=== PATIENT | female | born 1970 | race American Indian/Alaskan Native ===

== ENCOUNTER 2017-02-13 18:48 | Emergency (ER) | payer BC ==
[2017-02-13 21:10] LABS: Eosinophils % (Auto) 1.2 % (0.0-4.3); Hematocrit 35.1 % (30.3-42.9); Hemoglobin 11.2 gm/dl (10.1-14.3); Mean Corpuscular HGB Conc 32 % (30-34); Mean Corpuscular Volume 79 fl (79-97); Platelet Count 211 K/mm3 (140-440); Red Blood Count 4.42 M/mm3 (3.65-5.03); Red Cell Distribution Width 15.5 % (13.2-15.2)
[2017-02-13 21:13] LABS: Mean Corpuscular Hemoglobin 25 pg (28-32)
[2017-02-13 21:23] LABS: Albumin 4.1 g/dL (3.9-5); Alkaline Phosphatase 44 units/L (35-129); Anion Gap 17 mmol/L; Blood Urea Nitrogen 12 mg/dL (7-17); Carbon Dioxide 26 mmol/L (22-30); Chloride 100.1 mmol/L (98-107); Glucose 99 mg/dL (65-100); Lipase 24 units/L (13-60); Potassium 3.9 mmol/L (3.6-5.0); Sodium 139 mmol/L (137-145); Total Protein 8.1 g/dL (6.3-8.2)
[2017-02-13 21:26] LABS: Alanine Aminotransferase < 5 units/L (7-56)
[2017-02-13 21:54] LABS: Bilirubin,Urine NEG (Negative); Blood,Urine NEG (Negative); Ketones,Urine NEG (Negative); Leukocyte Esterase,Urine NEG (Negative); Mucus,Urine FEW /HPF; Nitrite,Urine NEG (Negative); Protein,Urine <15 mg/dL mg/dL (Negative); Urobilinogen,Urine < 2.0 mg/dL (<2.0)
[2017-02-13 22:09] VITALS: BP 117/76
[2017-02-13] MEDS ORDERED: MORPHINE IV ONE (22:50)
[2017-02-13] MEDS ORDERED: PEPCID IV ONE (22:51)
[2017-02-13] MEDS ORDERED: ZOFRAN IV ONE (22:51)
[2017-02-14] MEDS ORDERED: SUBLIMAZE IV ONE (00:09)
--- NOTE | 2017-02-14 01:08 | Emergency Department Report ---
ED Abdominal Pain HPI - General Chief Complaint: Abdominal Pain Stated Complaint: ABD PAIN/DIARRHEA X 1 WK Time Seen by Provider: 02/13/17 22:50 Source: patient Mode of arrival: Ambulatory Limitations: No Limitations - History of Present Illness Initial Comments: A 39-year-old female who presents with abdominal pain. Symptoms have been going on for the last week. She states that her abdominal pain is located in the right upper quadrant. The pain to 5 out 10 it doesn't radiate it is an achy type of pain nothing makes it better or worse. Patient also states that she's been having some nausea and vomiting for last 4 days. She's also had some watery diarrhea has not been any blood in the diarrhea or any black stool. Patient denies having any fevers she states that it's hard to hold food down. Severity scale (0 -10): 5 - Related Data Home Medications Medication Instructions Recorded Confirmed Last Taken metFORMIN [Glucophage] 500 mg PO DAILY 01/14/14 01/14/14 Unknown Previous Rx's Medication Instructions Recorded Last Taken Type Nitrofurantoin [place]/M-Cryst 100 mg PO Q12HR #14 capsule 06/03/14 Unknown Rx [Macrobid] Phenazopyridine [Pyridium] 200 mg PO TID #6 tablet 06/03/14 Unknown Rx Allergies Allergy/AdvReac Type Severity Reaction Status Date / Time Penicillins Allergy Angioedema Verified 01/14/14 22:34 ED Review of Systems ROS: Stated complaint: ABD PAIN/DIARRHEA X 1 WK Other details as noted in HPI Constitutional: denies: chills, fever Eyes: denies: eye pain, eye discharge, vision change ENT: denies: ear pain, throat pain Respiratory: denies: cough, shortness of breath, wheezing Cardiovascular: denies: chest pain, palpitations Endocrine: no symptoms reported Gastrointestinal: abdominal pain, nausea, vomiting, diarrhea Genitourinary: denies: urgency, dysuria, discharge Musculoskeletal: denies: back pain, joint swelling, arthralgia Skin: denies: rash, lesions Neurological: denies: headache, weakness, paresthesias Psychiatric: denies: anxiety, depression Hematological/Lymphatic: denies: easy bleeding, easy bruising ED Past Medical Hx - Past Medical History Previous Medical History?: Yes Hx Diabetes: Yes - Surgical History Past Surgical History?: Yes Additional Surgical History: [place] cyst removed 01/14/14. breast reduction - Social History Smoking Status: Never Smoker Substance Use Type: None - Medications Home Medications: Home Medications Medication Instructions Recorded Confirmed Last Taken Type metFORMIN [Glucophage] 500 mg PO DAILY 01/14/14 01/14/14 Unknown History Nitrofurantoin [place]/M-Cryst 100 mg PO Q12HR #14 capsule 06/03/14 Unknown Rx [Macrobid] Phenazopyridine [Pyridium] 200 mg PO TID #6 tablet 06/03/14 Unknown Rx ED Physical Exam - General Limitations: No Limitations General appearance: alert, in no apparent distress - Head Head exam: Present: atraumatic, normocephalic - Eye Eye exam: Present: normal appearance - ENT ENT exam: Present: mucous membranes moist - Neck Neck exam: Present: normal inspection - Respiratory Respiratory exam: Present: normal lung sounds bilaterally. Absent: respiratory distress - Cardiovascular Cardiovascular Exam: Present: regular rate, normal rhythm. Absent: systolic murmur, diastolic murmur, rubs, gallop - GI/Abdominal GI/Abdominal exam: Present: soft - Extremities Exam Extremities exam: Present: normal inspection, full ROM - Back Exam Back exam: Present: normal inspection - Neurological Exam Neurological exam: Present: alert, oriented X3 - Skin Skin exam: Present: warm, dry ED Course Vital Signs 02/13/17 02/13/17 20:18 22:08 Temperature 98.6 F Pulse Rate 83 68 Respiratory 18 16 Rate Blood Pressure 110/72 Blood Pressure 117/76 [Left] O2 Sat by Pulse 100 98 Oximetry - Reevaluation(s) Reevaluation #1: 02/14/17 01:04 Patient states that she is feeling better I we'll send patient home. ED Medical Decision Making - Lab Data Result diagrams: 02/13/17 20:52 02/13/17 20:52 Lab Results 02/13/17 02/13/17 02/13/17 Range/Units 20:44 20:52 20:52 WBC 6.0 (4.5-11.0) K/mm3 RBC 4.42 (3.65-5.03) M/mm3 Hgb 11.2 (10.1-14.3) gm/dl Hct 35.1 (30.3-42.9) % MCV 79 (79-97) fl MCH 25 L (28-32) pg MCHC 32 (30-34) % RDW 15.5 H (13.2-15.2) % Plt Count 211 (140-440) K/mm3 Lymph % (Auto) 36.7 H (13.4-35.0) % [place] % (Auto) 11.1 H (0.0-7.3) % Eos % (Auto) 1.2 (0.0-4.3) % Baso % (Auto) 1.0 (0.0-1.8) % Lymph # 2.2 (1.2-5.4) K/mm3 [place] # 0.7 (0.0-0.8) K/mm3 Eos # 0.1 (0.0-0.4) K/mm3 Baso # 0.1 (0.0-0.1) K/mm3 Seg Neutrophils % 50.0 (40.0-70.0) % Seg Neutrophils # 3.0 (1.8-7.7) K/mm3 Sodium (137-145) mmol/L Potassium (3.6-5.0) mmol/L Chloride (98-107) mmol/L Carbon Dioxide (22-30) mmol/L Anion Gap mmol/L BUN (7-17) mg/dL Creatinine (0.7-1.2) mg/dL Estimated GFR ml/min BUN/Creatinine Ratio % Glucose (65-100) mg/dL Calcium (8.4-10.2) mg/dL Total Bilirubin (0.1-1.2) mg/dL AST (5-40) units/L ALT (7-56) units/L Alkaline Phosphatase (35-129) units/L Total Protein (6.3-8.2) g/dL Albumin (3.9-5) g/dL Albumin/Globulin Ratio % Lipase (13-60) units/L HCG, Qual Negative (Negative) Urine Color Yellow (Yellow) Urine Turbidity Clear (Clear) Urine pH 5.0 (5.0-7.0) Ur Specific [place] 1.015 (1.003-1.030) Urine Protein <15 mg/dl (Negative) mg/dL Urine Glucose (UA) Neg (Negative) mg/dL Urine Ketones Neg (Negative) mg/dL Urine Blood Neg (Negative) Urine Nitrite Neg (Negative) Urine Bilirubin Neg (Negative) Urine Urobilinogen < 2.0 (<2.0) mg/dL Ur Leukocyte Esterase Neg (Negative) Urine WBC (Auto) 1.0 (0.0-6.0) /HPF Urine RBC (Auto) 1.0 (0.0-6.0) /HPF U Epithel Cells (Auto) 2.0 (0-13.0) /HPF Urine Mucus Few /HPF 02/13/17 Range/Units 20:52 WBC (4.5-11.0) K/mm3 RBC (3.65-5.03) M/mm3 Hgb (10.1-14.3) gm/dl Hct (30.3-42.9) % MCV (79-97) fl MCH (28-32) pg MCHC (30-34) % RDW (13.2-15.2) % Plt Count (140-440) K/mm3 Lymph % (Auto) (13.4-35.0) % [place] % (Auto) (0.0-7.3) % Eos % (Auto) (0.0-4.3) % Baso % (Auto) (0.0-1.8) % Lymph # (1.2-5.4) K/mm3 [place] # (0.0-0.8) K/mm3 Eos # (0.0-0.4) K/mm3 Baso # (0.0-0.1) K/mm3 Seg Neutrophils % (40.0-70.0) % Seg Neutrophils # (1.8-7.7) K/mm3 Sodium 139 (137-145) mmol/L Potassium 3.9 (3.6-5.0) mmol/L Chloride 100.1 (98-107) mmol/L Carbon Dioxide 26 (22-30) mmol/L Anion Gap 17 mmol/L BUN 12 (7-17) mg/dL Creatinine 0.8 (0.7-1.2) mg/dL Estimated GFR > 60 ml/min BUN/Creatinine Ratio 15.00 % Glucose 99 (65-100) mg/dL Calcium 9.0 (8.4-10.2) mg/dL Total Bilirubin 0.50 (0.1-1.2) mg/dL AST 17 (5-40) units/L ALT < 5 L (7-56) units/L Alkaline Phosphatase 44 (35-129) units/L Total Protein 8.1 (6.3-8.2) g/dL Albumin 4.1 (3.9-5) g/dL Albumin/Globulin Ratio 1.0 % Lipase 24 (13-60) units/L HCG, Qual (Negative) Urine Color (Yellow) Urine Turbidity (Clear) Urine pH (5.0-7.0) Ur Specific [place] (1.003-1.030) Urine Protein (Negative) mg/dL Urine Glucose (UA) (Negative) mg/dL Urine Ketones (Negative) mg/dL Urine Blood (Negative) Urine Nitrite (Negative) Urine Bilirubin (Negative) Urine Urobilinogen (<2.0) mg/dL Ur Leukocyte Esterase (Negative) Urine WBC (Auto) (0.0-6.0) /HPF Urine RBC (Auto) (0.0-6.0) /HPF U Epithel Cells (Auto) (0-13.0) /HPF Urine Mucus /HPF - Medical Decision Making Chief medical diagnosis: Gastroenteritis Differential medical diagnosis: GERD, food illness, peptic ulcer, Pancreatitis I will get CBC, CMP, lipase, IV fluids, IV narcotics. Patient states that she is feeling a lot better I will send patient home. Patient's symptoms going on for a week and given her clinical course it seems like it's mostly a gastroenteritis. Discussed with patient that she needs to drink clear fluids and to follow-up with her PCP. I gave patient return precautions and additional verbal discharge instructions were given. Critical care attestation.: If time is entered above; I have spent that time in minutes in the direct care of this critically ill patient, excluding procedure time. ED Disposition Clinical Impression: Nausea Abdominal pain Qualifiers: Abdominal location: right upper quadrant Qualified Code(s): R10.11 - Right upper quadrant pain Diarrhea Qualifiers: Diarrhea type: unspecified type Qualified Code(s): R19.7 - Diarrhea, unspecified Disposition: DC-01 TO HOME OR SELFCARE Is pt being admited?: No Does the pt Need Aspirin: No Condition: Stable Instructions: Abdominal Pain (ED) Referrals: CLEMENCIA YODER MD [Other] - 3-5 Days Time of Disposition: 01:07
== END 2017-02-14 02:30 | disposition home or self-care (01) ==
LOC: ED 18:48
DX: R10.11 Right upper quadrant pain (principal); R19.7 Diarrhea, unspecified; R11.0 Nausea; E11.9 Type 2 diabetes mellitus without complications; Z88.0 Allergy status to penicillin
CPT/HCPCS: 36415; 80053; 81001; 83690; 84703; 85025; 99283; J2270; J2405

== ENCOUNTER 2017-05-08 11:01 | Inpatient (IN) | payer BC ==
--- NOTE | 2017-05-03 10:34 | Anesthesia Consultation ---
Anesthesia Consult and Med Hx Date of service: 05/03/17 - Airway Anesthetic Teeth Evaluation: Good ROM Head & Neck: Adequate Mental/Hyoid Distance: Adequate Mallampati Class: Class II Intubation Access Assessment: Good - Pulmonary Exam CTA: Yes - Cardiac Exam Cardiac Exam: RRR - Pre-Operative Health Status ASA Pre-Surgery Classification: ASA2 Proposed Anesthetic Plan: General - Central Nervous System Hx Psychiatric Problems: No - Gastrointestinal Hx Gastroesophageal Reflux Disease: Yes (OTC Tums) - Endocrine Hx Non-Insulin Dependent Diabetes: No (pre diabetic on metformin) - Other Systems Hx Cancer: No
[2017-05-03 10:35] LABS: Basophils % (Auto) 0.6 % (0.0-1.8); Eosinophils % (Auto) 1.6 % (0.0-4.3); Hematocrit 33.9 % (30.3-42.9); Hemoglobin 11.1 gm/dl (10.1-14.3); Mean Corpuscular HGB Conc 33 % (30-34); Mean Corpuscular Hemoglobin 26 pg (28-32); Mean Corpuscular Volume 80 fl (79-97); Platelet Count 185 K/mm3 (140-440); Red Blood Count 4.26 M/mm3 (3.65-5.03); Red Cell Distribution Width 15.7 % (13.2-15.2); White Blood Count 4.2 K/mm3 (4.5-11.0)
[2017-05-03 10:56] LABS: Anion Gap 15 mmol/L; BUN/Creatinine Ratio 11; Blood Urea Nitrogen 10 mg/dL (7-17); Calcium 8.9 mg/dL (8.4-10.2); Carbon Dioxide 26 mmol/L (22-30); Chloride 106.1 mmol/L (98-107); Glucose 90 mg/dL (65-100); Potassium 3.7 mmol/L (3.6-5.0); Sodium 143 mmol/L (137-145)
--- NOTE | 2017-05-07 23:11 | History and Physical Report ---
History of Present Illness Date of examination: 05/01/17 History of present illness: Patient has been reassessed/reevaluated. H&P has been reviewed. No interval changes. This is a 47 years old female who presents with pelvic pain. " I hurt so bad today". She complains of dysmenorrhea, dyspareunia and vaginal discharge, but denies dysuria, vaginal itching, vaginal odor, painful bowel movements, constipation, diarrhea, nausea, vomiting, back pain and fever. Pain is located LLQ, LUQ, RUQ and suprapubic. She describes the pain as achy, cramping and pressure. Duration of pain is 5 min - 1 hour and >1 hour. Episodes are intermittent and cyclic. Patient notes pain is worse with intercourse. Patient notes pain is better with narcotics. The patient also presents with uterine fibroids. She complains of pelvic pain, pelvic pressure and menorrhagia. Associated symptoms include dyspareunia. Prior to today's visit the patient has had US of pelvis and sonohysterogram. Vital Signs: Patient Profile: 47 Years Old Female LMP: 04/17/2017 Height: 64 inches (162.56 cm) Weight: 155 pounds (70.45 kg) BMI: 26.60 BSA: 1.76 Menstrual History: LMP (date): 04/17/2017 Current Method of Contraception: None Past History : 1 Term Births: 0 Premature Births: 0 Living Children: 0 Para: 0 Mult. Births: 0 Prev : 0 Aborta: 1 GARAGE HAND History Operations: Breast Reduction: Uterine Anomaly: positive fibroids Infection History HIV Risk Eval: no Personal hx. of genital herpes: no Current Allergies (reviewed today): * PCN (Critical) Past Medical History: Reviewed history from 08/04/2010 and no changes required: G E R D Past Surgical History: Reviewed history from 07/19/2011 and no changes required: Breast Reduction: Risk Factors: Smoked Tobacco Use: Never smoker Smokeless Tobacco Use: Never Passive smoke exposure: no Drug use: no HIV high-risk behavior: no Alcohol use: no Exercise: no Seatbelt use: 100 % Review of Systems General Complains of fatigue. Denies fever, chills, sweats, anorexia, weakness, malaise, weight loss and sleep disorder. Complains of vaginal discharge, menorrhagia, pelvic pain, painful periods and painful sex. Denies incontinence, dysuria, hematuria, urinary frequency, amenorrhea, abnormal vaginal bleeding, genital sores, decreased libido, urinary urgency, hot flashes, vaginal dryness, vaginal itching and vaginal odor. CV Denies chest pains, palpitations, syncope, dyspnea on exertion, orthopnea, PND and peripheral edema. Resp Denies cough, dyspnea at rest, excessive sputum, hemoptysis, wheezing and pleurisy. GI Denies nausea, vomiting, diarrhea, constipation, change in bowel habits, abdominal pain, melena, hematochezia, jaundice, gas/bloating, indigestion/ heartburn, dysphagia and odynophagia. Breast Denies left breast lump, right breast lump, nipple discharge, bloody discharge from nipple, breast pain, abnormal mammogram and breast enlargement. Psych Denies depression, anxiety, irritability and mood swings. Past History Past Medical History: other (See HPI) Past Surgical History: Other (See HPI) Social history: other (See HPI) Family history: other (See HPI) Medications and Allergies Allergies Allergy/AdvReac Type Severity Reaction Status Date / Time Penicillins Allergy Anaphylaxis Verified 05/02/17 12:48 Home Medications Medication Instructions Recorded Confirmed Last Taken Type metFORMIN [Glucophage] 500 mg PO DAILY 01/14/14 05/02/17 Unknown History Calcium Carbonate [Tums] 200 mg PO PRN PRN 05/02/17 05/02/17 Unknown History Active Meds: Active Medications Lactated Ringer's (Lactated Ringers) 1,000 mls @ 100 mls/hr IV DIRECT TOÑITO Review of Systems Constitutional: other (See HPI) Exam - Physical Exam Narrative exam: HEENT: normocephalic, no lesions or deformities Skin no ulcers, xanthomas Chest: respiratory effort normal, clear to auscultation Breasts: Breast reduction surgical scars no masses CV: regular, normal S1-S2, no murmur, no rub, no gallop Abdomen: soft,-tender, suprapubic no masses, bowel sounds normal Musculoskeletal: grossly normal ROM in joints, no joint tenderness or muscle weakness Neuro: no gross anomalities Extremities: normal alignment, no joint enlargement, crepitus, masses or tenderness; normal tone and strength GARAGE HAND Exams Vulva/Vagina: normal appearance, yellow discharge, lesions. No evidence of cystocele or rectocele. Cervix: normal appearance, no lesions, no discharge Uterus: normal position, midline, mobile tender Adnexae: unable to palpate due to patient's guarding Rectovaginal: Deferred - Constitutional Vitals: Temp Pulse Resp BP Pulse Ox 98.5 F 76 16 104/68 05/03/17 10:15 05/03/17 10:15 05/03/17 10:15 05/03/17 10:15 Results - Labs CBC & Chem 7: 05/03/17 10:00 05/03/17 10:00 Assessment and Plan - Patient Problems (1) Intramural leiomyoma of uterus Current Visit: Yes Status: Acute Plan to address problem: Diagnosis explained to patient . Questions answered. .Possible etiology of #2 Discussed with patient various medical, surgical and radiological therapies common for treatment including myomectomy hysterectomy and uterine artery embolization Patient desires definitive treatment Patient desires hysterectomy Discussed risks and benefits of laparotomy, laparoscopy, vaginal and robotic assisted approaches for hysterectomies Patient desires robotic assisted total hysterectomy. Consent reviewed and signed . The risks and alternatives for this surgery were reviewed with the patient. Discuss the risks of the surgery including infection, bleeding possibly heavy enough to require a blood transfusion, possible damage to bowel, bladder or ureter. Patient understand that this surgery with make her sterile.Patient understands if her ovaries are removed she will become menopausal. Also if unable to complete robitcally a laparotomy maybe required. Her questions were answered. Patient understands and desires to proceed. .Patient desires bilateral oophorectomy (2) Menorrhagia Current Visit: Yes Status: Acute Qualifiers: Menorrahagia type: with regular cycle Qualified Code(s): N92.0 - Excessive and frequent menstruation with regular cycle Plan to address problem: Probably secondary to # 1 (3) Dysmenorrhea Current Visit: Yes Status: Acute Plan to address problem: Probably secondary to # 1
[~2017-05-08 11:01] MED LIST: CLEOCIN 600 MG/50 mL 600 MG/50 ML BAG IV SCH; GARAMYCIN/NS 120MG/100ML 120 MG/100 ML BAG IV SCH; LACTATED RINGERS 1,000 ML IV SCH; NEURONTIN PO NR; PEPCID PO NR; VERSED IV NR
[2017-05-08] MEDS ORDERED: SUBLIMAZE IV ONE (11:30)
[2017-05-08] MEDS ORDERED: NACL 0.9% 1000 ML 1,000 ML ONE ×2 (11:38→15:27)
[2017-05-08] MEDS ORDERED: MARCAINE 0.25% INFILTRATI ONE ×2 (11:49→14:21)
[2017-05-08] MEDS ORDERED: NEOSPORIN GU IR ONE (11:50)
[2017-05-08] MEDS ORDERED: DILAUDID IV PRN (11:52)
[2017-05-08] MEDS ORDERED: ZEMURON IV ONE (12:37)
[2017-05-08] MEDS ORDERED: XYLOCAINE MPF 2% ONE (12:37)
[2017-05-08] MEDS ORDERED: DILAUDID ONE ×2 (12:37→16:06)
[2017-05-08] MEDS ORDERED: DIPRIVAN 10 MG/ML IV ONE (12:37)
--- NOTE | 2017-05-08 12:45 | Anesthesia Day of Surgery ---
Anesthesia Day of Surgery - Day of Surgery Patient Examined: Yes Patient H&P Reviewed: Yes Patient is NPO: Yes
--- NOTE | 2017-05-08 12:55 | Anesthesia Day of Surgery ---
Anesthesia Day of Surgery - Day of Surgery Patient Examined: Yes Patient H&P Reviewed: Yes Patient is NPO: Yes
[2017-05-08] MEDS ORDERED: PEPCID IV NR (13:00)
[2017-05-08] MEDS ORDERED: CLEOCIN 600 MG/50 mL 600 MG/50 ML BAG IV SCH (13:00)
[2017-05-08] MEDS ORDERED: ZOFRAN IV PRN ×3 (13:00→17:16)
[2017-05-08] MEDS ORDERED: GARAMYCIN/NS 120MG/100ML 120 MG/100 ML BAG IV SCH (13:00)
[2017-05-08] MEDS ORDERED: NACL 0.9% 1000 ML 1,000 ML IV SCH (13:00)
[2017-05-08] MEDS ORDERED: DECADRON ONE (13:52)
[2017-05-08] MEDS ORDERED: ZOFRAN ONE (13:52)
[2017-05-08] MEDS ORDERED: NACL 0.9% IR ONE ×2 (14:20→14:21)
[2017-05-08] MEDS ORDERED: ROBINUL ONE ×2 (14:57→14:58)
[2017-05-08] MEDS ORDERED: NEOSTIGMINE ONE (14:58)
[2017-05-08] MEDS ORDERED: NEO SYNEPHRINE/NS Syringe(OR USE) IV ONE (15:00)
--- NOTE | 2017-05-08 15:13 | Operative Report ---
Operative Report Operative Report: Operative Report: Date of procedure: 05/08/2017 Pre-operative diagnosis: Severe dysmenorrhea menorrhalgia history of fibroids and possible adenomyosis Post-operative diagnosis: Same plus pelvic adhesive disease Procedure name(s): Robotic assisted total hysterectomy with bilateral salpingo- oophorectomy with lysis of adhesions Surgeon: Galdino Jacob MD Brush Maker Machine: Isaura Rosado Anesthesia: General EBL: 50 mL Complications: None Findings: Uterus approximately 8 weeks in size with left hydrosalpinx with some adhesions in the left sidewalls and: Also filmy adhesions in the cul-de-sac normal-appearing right adnexa is with adhesions to the posterior cul-de-sac Specimen(s): Uterus including cervix was bilateral adnexa Procedure: Patient was brought to the operating room where general anesthesia was induced without difficulty. Patient was placed in the dorsal lithotomy position. Prepped and draped in the usual sterile manner for robotic procedure. Augustine catheter was placed without difficulty. Speculum was placed in the vagina. A large V-Care Uterine manipulator was placed without difficulty. Attention was now switched to the patient's abdomen. A vertical supra-umbilicus incision was made with a scalpel. A 10-12 trocar was placed in this incision under direct visualization. Intra-abdominal placement was verified with no evidence of internal organ damage. The patient pelvic findings were noted as above. It was determined that the patient was a candidate for robotic procedure. On both sides the umbilical incision at 8 cm, incisions were made for robotic trocar. Each robotic trocar was placed under direct visualization with no evidence of internal organ damage. One rn surgery icu ports were then placed. One 5 mm trocar was placed 2 fingerbreadths above the right iliac crest. At this time the patient was placed in extreme Trendelenburg. The da Melissa robot was then docked on the patient's left side. At this time I took my place under the robotic operating gordon. Starting on the patient's right side the right ureter was clearly seen out of the operative field. The ovarian vessels were clearly seen cauterize and cut with the robotic scissors. The meso salpinx were cauterized and cut reaching to the round ligament. The round ligament was cauterized and cut. The leaves of the broad ligament on that side was anteriorly and posteriorly. The anterior leaves were use to form a bladder flap anteriorly the posterior leaf was cut exposing the uterine vessels on that side. The uterine vessels were cauterized and cut the bladder flap was more clearly made. Attention was then switched to the patient's left side. Where the ureter was again identified and cleared out of the field. Bluntly and sharply in lyses of adhesion was done to restore anatomical position on the left with the hydrosalpinx seen the adhesions are freed the tube from the intestines and the posterior cul-de-sac. The same procedure was cauterized and cut and the ovarian vessels and receiving with some incising the round ligament broad the broad ligament then cauterized and cut and the uterine vessels were performed.. At this time the uterus was appearing very cyanotic. After inspecting the bladder flap insured no evidence of bladder injury, the colpotomy was then started. Incision started at 6:00 until the V-Care could be seen. This incision was extended from 6:00 to 9:00. Then from 6:00 to 3:00. Then from 9:00 to 12:00. This incision was extended from 3:00 to 12:00. At this time colpotomy was complete with no evidence of adjacent organ damage. The rn surgery icu remove the uterus from through the colpotomy site. The vaginal cuff was irrigated and cauterized and found to be hemostatic. The cuff was closed with roboticly using 0 V- Lock suture. All pedicles were inspected and found to be hemostatic. The ureters were identified bilaterally and found to be functioning normal. The Augustine bag had clear yellow urine. Opal is placed across the vaginal cuff. All instruments were then removed. The large trocar sites were closed in layers with 2-0 and 4- 0 Vicryl. The smaller incisions were closed subcuticularly with 4-0 Vicryl. The patient tolerated procedure well. She was awakened in the operating room and accompanied to the recovery room in good condition.
[2017-05-08] MEDS ORDERED: TORADOL ONE (15:34)
[2017-05-08] MEDS: DILAUDID IV PRN ×2 (16:05→16:20)
[2017-05-08] MEDS ORDERED: MILK OF MAGNESIA PO PRN (17:16)
[2017-05-08] MEDS ORDERED: D5LR 1,000 ML IV SCH (17:16)
[2017-05-08] MEDS ORDERED: LACTATED RINGERS 1,000 ML ONE (17:23)
[2017-05-08] MEDS ORDERED: CLIMARA TD SCH ×3 (18:00→22:00)
[2017-05-08] MEDS: NORCO 5/325 PO PRN (20:53)
[2017-05-08] MEDS: CLEOCIN 600 MG/50 mL 600 MG/50 ML BAG IV SCH (22:05)
[2017-05-08] MEDS: COLACE PO SCH (22:11)
[2017-05-09] MEDS: TORADOL IV SCH ×2 (00:04→05:08)
[2017-05-09] MEDS: CLEOCIN 600 MG/50 mL 600 MG/50 ML BAG IV SCH (05:09)
[2017-05-09 06:26] LABS: Hematocrit 29.5 % (30.3-42.9)
[2017-05-09] MEDS: NORCO 5/325 PO PRN (08:49)
[2017-05-09] MEDS: COLACE PO SCH (08:50)
--- NOTE | 2017-05-09 12:55 | Discharge Summary ---
Providers - Providers Date of Admission: 05/08/17 15:14 Date of discharge: 05/09/17 Attending physician: REI ESPANA Hospitalization Reason for admission: dysmenorrhea menorrhalgia and pelvic pain history of myomas Condition: Good Procedures: Robotic-assisted total hysterectomy with bilateral salpingo-oophorectomy and lysis of adhesions Hospital course: Patient was admitted and underwent above procedure without complications. Her post operative course was benign she was afebrile throughout. Patient postoperative day 1 hematocrit was in an acceptable range. Patient had no orthostatic symptoms. Patient was tolerating regular diet and voiding without difficulty at time of discharge. Patient incision was healing well without evidence of infection. Disposition: - TO HOME OR SELFCARE - Discharge Diagnoses (1) Intramural leiomyoma of uterus Status: Acute (2) Menorrhagia Status: Acute Qualifiers: Menorrahagia type: with regular cycle Qualified Code(s): N92.0 - Excessive and frequent menstruation with regular cycle (3) Dysmenorrhea Status: Acute Core Measure Documentation - Palliative Care Palliative Care/ Comfort Measures: Not Applicable - Core Measures Any of the following diagnoses?: none Exam - Constitutional Vitals: Temp Pulse Resp BP Pulse Ox 98.3 F 60 18 104/63 99 05/09/17 08:01 05/09/17 08:01 05/09/17 08:01 05/09/17 08:01 05/08/17 16:45 General appearance: Present: no acute distress - Respiratory Respiratory effort: normal - Cardiovascular Rhythm: regular - Extremities Extremities: no ischemia, pulses intact, No edema, Full ROM - Abdominal General gastrointestinal: Present: soft, tender (appropriately), distended ( slightly), normal bowel sounds, other (incisions healing well) Female genitourinary: Present: deferred - Rectal Rectal Exam: deferred - Integumentary Integumentary: Present: clear, warm, dry - Musculoskeletal Musculoskeletal: strength equal bilaterally - Psychiatric Psychiatric: appropriate mood/affect, intact judgment & insight Plan Activity: advance as tolerated Diet: regular Wound: open to air Additional Instructions: Patient instructed no heavy lifting for 4 weeks. No intercourse for 8 weeks. Call office for fever, chills, nausea, vomiting or pain not controlled by pain medications. Ambulation is encouraged. Patient's call for heavy vaginal bleeding. Patient instructed to keep her scheduled post operative office appointment. Follow up with: CLEMENCIA YODER [Other] - 7 Days Prescriptions: RX: Ferrous Sulfate [Feosol 325 MG tab] 325 mg PO BID #60 tablet RX: Ibuprofen [Motrin 800 MG tab] 800 mg PO Q6H PRN #30 tablet PRN Reason: Pain RX: oxyCODONE /ACETAMINOPHEN [Percocet 5/325 mg] 1 - 2 tab PO Q4H PRN #30 tablet PRN Reason: Pain, Moderate
[2017-05-09 17:33] VITALS: BP 113/71
== END 2017-05-09 14:43 | disposition home or self-care (01) | DRG 743 ==
LOC: OR 11:01 → OB 15:14
PROVIDERS: ADMIT Obstetrics & Gynecology; ATTEND Obstetrics & Gynecology
PROC: 0UT9FZZ Resection of Uterus, Via Natural or Artificial Opening With Percutaneous Endoscopic Assistance (ICD-10-PCS; principal; 2017-05-08)
PROC: 0UT2FZZ Resection of Bilateral Ovaries, Via Natural or Artificial Opening With Percutaneous Endoscopic Assistance (ICD-10-PCS; 2017-05-08)
PROC: 0UT7FZZ Resection of Bilateral Fallopian Tubes, Via Natural or Artificial Opening With Percutaneous Endoscopic Assistance (ICD-10-PCS; 2017-05-08)
PROC: 8E0W4CZ Robotic Assisted Procedure of Trunk Region, Percutaneous Endoscopic Approach (ICD-10-PCS; 2017-05-08)
DX: D25.1 Intramural leiomyoma of uterus (principal); N92.0 Excessive and frequent menstruation with regular cycle; N94.6 Dysmenorrhea, unspecified; K21.9 Gastro-esophageal reflux disease without esophagitis; Z88.0 Allergy status to penicillin
CPT/HCPCS: 36415; 80048; 82962; 84703; 85014; 85018; 85025; 86850; 86900; 86901; 88307; A4217; J1100; J1170; J1580; J1885; J2250; J2370; J2405; J2704; J2710; J7030; J7120; J7121